=== PATIENT | male | born 1990 | race Two or more races ===

== ENCOUNTER 2021-10-23 22:01 | Emergency (ER) | payer OTHER ==
[~2021-10-23] VITALS: Ht 182.9 cm; Wt 158.8 kg
[2021-10-23 22:29] VITALS: BP 140/86
== END 2021-10-24 02:28 | disposition home or self-care (01) ==
LOC: ER 22:01
DX: D17.1 Benign lipomatous neoplasm of skin and subcutaneous tissue of trunk (principal)
CPT/HCPCS: 71250